=== PATIENT | male | born 1970 | race Caucasian/White ===

== ENCOUNTER → 2017-02-12 | Outpatient (CLI) | payer BC ==
[~2017-02-12] VITALS: Ht 195.6 cm; Wt 194.1 kg
[~2017-02-12] MED LIST: BUPROPION XL150 MG PO; LASIX40 MG PO; METRONIDAZOLE500 MG PO; MULTIVITAMIN1 EAC1 PO; NORCO 10/3251 TABLET PO; PROAIR HFA8.5 GM IH; PULMICORT FLEX90 MCG IH; PULMICORT90 MICROGR IH; SINGULAIR10 MG PO; VENLAFAXINE HC150 MG PO; VITAMIN D-32000 UNI2 PO; WELLBUTRIN SR150 MG PO; ZANTAC150 M1 PO; ZOLOFT50 MG PO; ZYRTEC10 M2 PO
== END | disposition home or self-care (01) ==
LOC: AMB 12:48
DX: D12.3 Benign neoplasm of transverse colon (principal); K63.5 Polyp of colon; K62.5 Hemorrhage of anus and rectum; K62.89 Other specified diseases of anus and rectum; I10 Essential (primary) hypertension; I45.10 Unspecified right bundle-branch block; J45.909 Unspecified asthma, uncomplicated; K21.9 Gastro-esophageal reflux disease without esophagitis; K64.8 Other hemorrhoids; E66.01 Morbid (severe) obesity due to excess calories; Z68.43 Body mass index [BMI] 50.0-59.9, adult
CPT/HCPCS: 88305; 93005

== ENCOUNTER 2017-04-09 10:59 | Emergency (ER) | payer BC ==
[~2017-04-09] VITALS: Ht 195.6 cm; Wt 197.1 kg
[2017-04-09 14:20] LABS: MCH 29.3 PG (29.0-34.0); MCHC 33.3 G/DL (30.0-36.0); MCV 88.1 FL (86-99); MEAN PLAT.VOLUME 10.7 uM^3 (9.0-12.4); PLATELET COUNT 193 K/uL (156-360); RBC DIS.WIDTH-CV 12.9 % (11.8-14.6); RBC DIS.WIDTH-SD 41.9 % (39-53); RED BLOOD COUNT 4.88 M/uL (4.00-5.50); WHITE BLOOD COUNT 6.5 K/uL (4.1-10.2)
[2017-04-09 14:28] LABS: CHLORIDE 105 mEq/L (99-109); POTASSIUM 4.3 mEq/L (3.7-5.4); SODIUM 137 mEq/L (136-147)
[2017-04-09 14:30] LABS: GLUCOSE 86 mg/dL (70-99)
[2017-04-09 14:31] LABS: ANION GAP 8 MEQ/L (2-14)
[2017-04-09 14:34] LABS: GFR ESTIMATE (CALCULATED) > 59 mL/min/
[2017-04-09 14:35] LABS: UREA NITROGEN (BUN) 10 mg/dL (9-23)
[2017-04-09 16:16] VITALS: BP 129/87
== END 2017-04-09 16:16 | disposition home or self-care (01) ==
LOC: EME 10:59
PROVIDERS: Emergency Medicine
DX: E86.0 Dehydration (principal); R42 Dizziness and giddiness; I10 Essential (primary) hypertension
CPT/HCPCS: 70450; 80048; 85027; 93005; 99281; 99285; J1885; J7030